=== PATIENT | male | born 1970 | race Caucasian/White ===

== ENCOUNTER 2024-05-28 01:33 | Emergency (ER) | payer OTHER ==
[~2024-05-28] VITALS: Ht 167.6 cm; Wt 91.0 kg
[2024-05-28 01:49] VITALS: O2SAT 96
[2024-05-28 01:52] VITALS: BP 173/45; PULSE 78; RESP 16; TEMP 98.1
[2024-05-28] MEDS ORDERED: KETOROLAC 15MG/ML VIAL IM ONE (02:30)
[2024-05-28] MEDS ORDERED: KETOROLAC 15MG/ML VIAL IM NR (03:15)
[2024-05-28] MEDS ORDERED: LIDO700A15 TP (03:49)
[2024-05-28] MEDS ORDERED: NAPR-1176 MT (03:49)
== END 2024-05-28 07:35 | disposition home or self-care (01) ==
LOC: ER 01:33
DX: M54.32 Sciatica, left side (principal); I10 Essential (primary) hypertension; E11.9 Type 2 diabetes mellitus without complications
CPT/HCPCS: 99283; J1885